=== PATIENT | female | born 1980 | race Caucasian/White ===

== ENCOUNTER 2019-01-25 16:09 | Emergency (ER) | payer BC ==
--- NOTE | 2019-01-25 16:30 | EDM.PDOC ---
ED HPI GENERAL MEDICAL PROBLEM - General Stated Complaint: LIGHTHEADED, IRREGULAR HEARTBEAT Time Seen by Provider: 01/25/19 16:15 Source of Information: Reports: Patient - History of Present Illness INITIAL COMMENTS - FREE TEXT/NARRATIVE: pt comes in to the ER ambulatory with c/o left sided HAs and palpitation, states this started since early this morning, describe throbing pain and photosensitivity with some nausea, denies neck stiffness or any other associated neuro sx, tells this LEMUS is similarto usual HAs that she gets once every few months and usually resolves with OTC tylenol , but this did not help today. pt report also sensation of irregular heart beats on and off since the morning , denies sensation of heart racing , states she had something similar when she was a teenager but none since then, pt denies any associated chest pain or cough or SOB or any other associated resp or CV sx. headache Pain Score (Numeric/FACES): 5 - Related Data Allergies Allergy/AdvReac Type Severity Reaction Status Date / Time sulfamethoxazole Allergy Hives Verified 01/25/19 16:22 [From Bactrim] trimethoprim [From Bactrim] Allergy Hives Verified 01/25/19 16:22 Home Meds: Home Meds DULoxetine [Cymbalta] 60 mg PO DAILY 01/25/19 [History] Multivitamin [Multi-Vitamin Daily] 1 tab PO DAILY 01/25/19 [History] Past Medical History Cardiovascular History: Reports: Other (See Below) Other Cardiovascular History: states that she has heart murmur Genitourinary History: Reports: None - Past Surgical History Female Surgical History: Reports: Section, Tubal Ligation Social & Family History - Family History Family Medical History: Noncontributory - Living Situation & Occupation Living situation: Reports: ED ROS GENERAL - Review of Systems Review Of Systems: See Below Constitutional: Denies: Fever, Chills, Weakness, Fatigue HEENT: Reports: No Symptoms Respiratory: Reports: No Symptoms Cardiovascular: Reports: Palpitations Endocrine: Reports: No Symptoms GI/Abdominal: Reports: No Symptoms, Nausea. Denies: Vomiting : Reports: No Symptoms Musculoskeletal: Reports: No Symptoms Skin: Reports: No Symptoms Neurological: Reports: Headache. Denies: Confusion, Numbness, Pre-Existing Deficit, Seizure, Syncope, Tingling, Trouble Speaking, Difficulty Walking, Weakness, Change in Speech Psychiatric: Reports: No Symptoms ED EXAM, GENERAL - Physical Exam Exam: See Below Exam Limited By: No Limitations General Appearance: Alert, Mild Distress Eye Exam: Bilateral Eye: Normal Inspection, PERRL Ears: Normal TMs Nose: Normal Inspection, Normal Mucosa, No Blood Throat/Mouth: Normal Inspection, Normal Oropharynx Head: Atraumatic, Normocephalic. No: Facial Tenderness, Sinus Tenderness Neck: Normal Inspection, Supple, Non-Tender, Full Range of Motion Respiratory/Chest: No Respiratory Distress, Lungs Clear, Normal Breath Sounds, No Accessory Muscle Use, Chest Non-Tender Cardiovascular: Normal Peripheral Pulses, Regular Rate, Rhythm, No Edema, No Gallop, No JVD, No Rub, Systolic Murmur (hear is regular with occasional ectopic beats ), Other (h). No: No Murmur GI/Abdominal: Normal Bowel Sounds, Soft, Non-Tender, No Organomegaly, No Distention, No Abnormal Bruit, No Mass Extremities: Normal Inspection Neurological: Alert, Oriented, CN II-XII Intact, Normal Cognition, Normal Gait, Normal Reflexes, No Motor/Sensory Deficits. No: Sensory/Motor Deficit Course - Vital Signs Text/Narrative:: lab results were explained to pt, EKG shows PVCs otherwise no acute ST changes, pt is comfortable here after Toradol and Phenergan . pt has acute migran and palpitation secondary to PVCs, she is medically stable for discharge and follow up with PCP in 2 days. Last Recorded V/S: Last Vital Signs Temp 36.7 C 01/25/19 16:09 Pulse 94 01/25/19 16:09 Resp 20 01/25/19 16:09 BP 155/88 H 01/25/19 16:09 Pulse Ox 100 01/25/19 16:09 - Orders/Labs/Meds Labs: Laboratory Tests 01/25/19 01/25/19 01/25/19 Range/Units 16:40 16:40 16:40 WBC 8.9 (4.5-12.0) X10-3/uL RBC 4.64 (3.23-5.20) x10(6)uL Hgb 14.3 (11.5-15.5) g/dL Hct 42.8 (30.0-51.3) % MCV 92.1 (80-96) fL MCH 30.8 (27.7-33.6) pg MCHC 33.4 (32.2-35.4) g/dL RDW 11.8 (11.5-15.5) % Plt Count 313 (125-369) X10(3)uL MPV 8.2 (7.4-10.4) fL Neut % (Auto) 66.0 (46-82) % Lymph % (Auto) 26.8 (13-37) % Jack % (Auto) 4.8 (4-12) % Eos % (Auto) 2 (1.0-5.0) % Baso % (Auto) 1 (0-2) % Neut # (Auto) 5.9 (1.6-8.3) # Lymph # (Auto) 2.4 (0.6-5.0) # Jack # (Auto) 0.4 (0.0-1.3) # Eos # (Auto) 0.1 (0.0-0.8) # Baso # (Auto) 0.1 (0.0-0.2) # Sodium 141 (135-145) mmol/L Potassium 3.7 (3.5-5.3) mmol/L Chloride 103 (100-110) mmol/L Carbon Dioxide 26 (21-32) mmol/L BUN 13 (7-18) mg/dL Creatinine 0.8 (0.55-1.02) mg/dL Est Cr Clr Drug Dosing 80.72 mL/min Estimated GFR (MDRD) > 60 (>60) BUN/Creatinine Ratio 16.3 (9-20) Glucose 93 (80-116) mg/dL Calcium 8.8 (8.6-10.2) mg/dL Total Bilirubin 0.4 (0.1-1.3) mg/dL AST 11 (5-25) IU/L ALT 18 (12-36) U/L Alkaline Phosphatase 64 (56-112) IU/L Total Protein 7.5 (6.0-8.0) g/dL Albumin 4.1 (3.5-5.2) g/dL Globulin 3.4 g/dL Albumin/Globulin Ratio 1.2 TSH, Ultra Sensitive 1.88 (0.36-3.74) IU/mL Meds: Medications Discontinued Medications Generic Name Dose Route Start Last Admin Trade Name Freq PRN Reason Stop Dose Admin Ketorolac Tromethamine 60 mg 01/25/19 16:34 01/25/19 16:49 Toradol IM 01/25/19 16:35 60 mg ONETIME ONE Administration Promethazine HCl 25 mg 01/25/19 16:34 01/25/19 16:49 Phenergan IM 01/25/19 16:35 25 mg ONETIME ONE Administration Departure - Departure Time of Disposition: 17:28 Disposition: Home, Self-Care 01 Clinical Impression: Migraine - Discharge Information Referrals: Krystina Lanza NP [Primary Care Provider] -
[2019-01-25] MEDS ORDERED: Ketorolac 60 MG/2 ML SDV IM ONE (16:34)
[2019-01-25] MEDS ORDERED: Promethazine 25 MG/ML SDV IM ONE (16:34)
[2019-01-25 19:22] VITALS: BP 144/88
== END 2019-01-25 17:16 | disposition home or self-care (01) ==
LOC: FB.ED 16:09
DX: G43.909 Migraine, unspecified, not intractable, without status migrainosus (principal); Z88.2 Allergy status to sulfonamides; Z98.51 Tubal ligation status
CPT/HCPCS: 36415; 80053; 84443; 85025; 93005; 96372; 99284; J1885; J2550